=== PATIENT | male | born 1990 | race Two or more races ===

== ENCOUNTER 2022-11-06 14:34 | Emergency (ER) | payer OTHER ==
[2022-11-06 14:52] VITALS: BP 127/95; PULSE 73; RESP 19; TEMP 98.6; BMI 30.1
[2022-11-06] MEDS ORDERED: ACETAMINOPHEN 500 MG TABLET (FP) PO ONE (15:45)
[2022-11-06] MEDS ORDERED: KETOROLAC TROMETHAMINE 30 MG/1 ML VIAL IM ONE (15:45)
[2022-11-06] MEDS ORDERED: LIDOCAINE 5% TOPICAL PATCH TP ONE (15:45)
[2022-11-06] MEDS ORDERED: diazePAM 5 MG TABLET PO ONE (15:45)
[2022-11-06] MEDS ORDERED: LIDOCAINE 5% TOPICAL PATCH ONE (15:47)
[2022-11-06] MEDS ORDERED: ACETAMINOPHEN 500 MG TABLET (FP) ONE (15:48)
[2022-11-06] MEDS ORDERED: diazePAM 5 MG TABLET ONE (15:48)
[2022-11-06] MEDS ORDERED: KETOROLAC TROMETHAMINE 30 MG/1 ML VIAL ONE (15:48)
[2022-11-06] MEDS ORDERED: LIDOCAINE PATCH REMOVAL MC SCH (22:00)
== END 2022-11-06 16:20 | disposition home or self-care (01) ==
LOC: JERFT 14:34
PROC: 3E023GC Introduction of Other Therapeutic Substance into Muscle, Percutaneous Approach (ICD-10-PCS; principal; 2022-11-06)
DX: M54.31 Sciatica, right side (principal)
CPT/HCPCS: 99284-25